=== PATIENT | male | born 1965 | race Caucasian/White ===

== ENCOUNTER 2018-05-25 15:25 | Emergency (ER) | payer SELFPAY ==
[~2018-05-25] VITALS: Ht 190.5 cm; Wt 136.0 kg
[2018-05-25 15:43] VITALS: BP 139/96; PULSE 88; RESP 18; Ht 190.5 cm; Wt 136.0 kg
== END 2018-05-25 16:20 | disposition left against medical advice (07) ==
LOC: FTE 15:25
DX: Z53.21 Procedure and treatment not carried out due to patient leaving prior to being seen by health care provider (principal)